=== PATIENT | male | born 1935 | race Caucasian/White ===

== ENCOUNTER 2020-09-14 09:15 | Inpatient (IN) | payer MEDICARE ==
[2020-09-14 09:59] LABS: #Basophils 0.1 10x3/uL (0.0-0.2); #Eosinphils 0.2 10x3/uL (0.0-0.5); #Monocytes 1.4 10x3/uL (0.0-1.1); #Neutrophils 5.4 10x3/uL (1.5-8.4); %Basophils 0.5 % (0.0-2.0); %Eosinophils 2.4 % (0.0-6.0); %Lymphocytes 21.9 % (18.0-47.0); %Monocytes 15.6 % (0.0-10.0); %Neutrophils 59.3 % (40.0-75.0); Hemoglobin 15.1 g/dL (13.5-17.5); Mean Corpuscular HGB CONC 32.6 g/dL (32.0-36.0); Mean Corpuscular Hemoglobin 34.1 pg (27.0-33.0); Mean Corpuscular Volume 104.5 fl (81.2-95.1); Mean Platelet Volume 11.3 fl (7.4-10.4); Platelet Count 219 10x3/uL (150-450); RBC Distribution Width 15.1 % (11.5-14.5); Red Blood Cell (RBC) Count 4.43 10x6/uL (4.32-5.72); White Blood Cell (WBC) Count 9.1 10x3/uL (3.5-10.5)
[2020-09-14 10:10] LABS: ALT (SGPT) 17 U/L (8-55); AST (SGOT) 17 U/L (5-34); Alkaline Phosphatase 119 U/L (40-110); Anion Gap 15 mmol/L (10-20); BUN (Urea Nitrogen) 21 mg/dL (8.4-25.7); Bilirubin, Total 1.5 mg/dL (0.2-1.2); Calc. Creatinine Clearance 0 mL/min (70-130); Carbon Dioxide 22 mmol/L (23-31); Chloride 105 mmol/L (98-107); Globulin 2.9 g/dL (2.4-3.5); Glucose 138 mg/dL (83-110); Magnesium 1.9 mg/dL (1.6-2.6); Potassium 4.2 mmol/L (3.5-5.1); Protein, Total 6.9 g/dL (5.8-8.1); Sodium 138 mmol/L (136-145)
[2020-09-14 10:13] LABS: D-Dimer Test 0.59 mg/L FEU (0.19-0.50); INR-International Normal Ratio 2.1; PTT 33.9 sec (22.0-33.0); Prothrombin Time 22.9 sec (9.5-12.1)
[2020-09-14 10:33] LABS: CKMB 2.4 ng/mL (0-6.6)
[2020-09-14] MEDS ORDERED: Furosemide 40 MG/4 ML VIAL ONE (11:09)
[2020-09-14] MEDS ORDERED: Senokot S 8.6-50 MG TAB PO PRN (12:05)
[2020-09-14] MEDS ORDERED: Ondansetron PF 4 MG/2 ML Vial IVP PRN (12:05)
[2020-09-14] MEDS ORDERED: Acetaminophen 325 MG TAB PO PRN (12:05)
[2020-09-14 14:37] VITALS: BMI 26.5
[2020-09-14 16:01] LABS: Troponin I 0.067 ng/mL (< 0.028)
[2020-09-14] MEDS ORDERED: Communication Order-Pharmacy FS SCH (16:30)
[2020-09-14] MEDS ORDERED: Phytonadione 10 MG/ML AMP SLOW IVP SCH (16:45)
[2020-09-14] MEDS: Furosemide 40 MG/4 ML VIAL SLOW IVP SCH (17:05)
[2020-09-14] MEDS: Carvedilol 6.25 MG TAB PO SCH (20:28)
[2020-09-14] MEDS: Atorvastatin Calcium 40 MG TAB PO SCH (20:28)
[2020-09-15 01:19] LABS: SARS-CoV-2 PCR by NAA Not Detected (NotDetected)
[2020-09-15 05:12] LABS: INR-International Normal Ratio 1.4; Prothrombin Time 15.6 sec (9.5-12.1)
[2020-09-15 05:26] LABS: ALT (SGPT) 13 U/L (8-55); AST (SGOT) 20 U/L (5-34); Albumin 3.7 g/dL (3.4-4.8); Alkaline Phosphatase 103 U/L (40-110); Anion Gap 16 mmol/L (10-20); BUN (Urea Nitrogen) 20 mg/dL (8.4-25.7); Bilirubin, Total 1.4 mg/dL (0.2-1.2); Calc. Creatinine Clearance 65 mL/min (70-130); Calcium 9.2 mg/dL (7.8-10.44); Carbon Dioxide 22 mmol/L (23-31); Cardiac Risk 2.7 (Less than 4.5); Chloride 103 mmol/L (98-107); Cholesterol 77 mg/dl (< 200 Desired); Glucose 105 mg/dL (83-110); HDL Cholesterol 29 mg/dL (>60 Neg Risk); LDL Cholesterol, Calculated 32 mg/dL; Magnesium 1.8 mg/dL (1.6-2.6); Potassium 3.6 mmol/L (3.5-5.1); Protein, Total 6.7 g/dL (5.8-8.1); Sodium 137 mmol/L (136-145); Triglycerides 81 mg/dL (Less than 150)
[2020-09-15] MEDS ORDERED: Loratadine 10 MG TAB PO SCH (06:30)
[2020-09-15] MEDS: Levothyroxine Sodium 50 MCG TAB PO SCH (06:30)
[2020-09-15] MEDS ORDERED: Clopidogrel Bisulfate 75 MG TAB PO SCH (06:30)
[2020-09-15] MEDS ORDERED: DULoxetine 30 MG CAP PO SCH (06:30)
[2020-09-15] MEDS: Carvedilol 6.25 MG TAB PO SCH ×2 (06:31→20:48)
[2020-09-15 06:39] LABS: Anisocytosis SLIGHT = 6-15 cells (100X) (0-5/hpf); Band 4 % (5-11); Hemoglobin 14.4 g/dL (13.5-17.5); Large Platelets SLIGHT; Lymphocytes 24 % (21-51); MDiff Complete? YES; Macrocytosis MODERATE=16-30 cells (100X) (0-5/hpf); Mean Corpuscular HGB CONC 33.5 g/dL (32.0-36.0); Mean Corpuscular Hemoglobin 34.2 pg (27.0-33.0); Mean Corpuscular Volume 102.1 fl (81.2-95.1); Mean Platelet Volume 11.5 fl (7.4-10.4); Monocytes 12 % (0-10); Neutrophil 56 % (42-75); Ovalocytes SLIGHT = 2-5 cells (100X) (0-1/hpf); Platelet Count 192 10x3/uL (150-450); Platelet Morphology Comment Appears Adequate; RBC Distribution Width 14.9 % (11.5-14.5); Reactive Lymphocytes 4 % (0-10); Red Blood Cell (RBC) Count 4.21 10x6/uL (4.32-5.72); White Blood Cell (WBC) Count 8.6 10x3/uL (3.5-10.5)
[2020-09-15] MEDS: Clopidogrel Bisulfate 75 MG TAB PO SCH (07:02)
[2020-09-15] MEDS: Furosemide 40 MG/4 ML VIAL SLOW IVP SCH ×2 (07:14→16:15)
[2020-09-15] MEDS: Loratadine 10 MG TAB PO SCH (08:47)
[2020-09-15] MEDS: DULoxetine 30 MG CAP PO SCH (08:47)
[2020-09-15] MEDS: Spironolactone 25 MG TAB PO SCH (08:48)
[2020-09-15] MEDS ORDERED: Nitroglycerin 50 MG/250 ML BOT 250 ML ONE (09:17)
[2020-09-15] MEDS ORDERED: Heparin 10,000 UNITS/ 10 ML VIAL ONE (09:17)
[2020-09-15] MEDS ORDERED: Lidocaine 1% PF 5 ML VIAL ONE (09:18)
[2020-09-15] MEDS ORDERED: Verapamil 5 MG/2 ML VIAL ONE (09:18)
[2020-09-15] MEDS ORDERED: Adenosine 6 MG/2 ML VIAL ONE (09:18)
[2020-09-15] MEDS ORDERED: Bivalirudin 250 MG VIAL ONE (09:18)
[2020-09-15] MEDS ORDERED: Fentanyl 100 MCG/2 ML VIAL ONE (09:44)
[2020-09-15] MEDS ORDERED: Midazolam HCl 2 mg/2 ml Vial ONE (09:45)
[2020-09-15] MEDS ORDERED: Nitroglycerin 0.4 MG TAB (25 Tab Bottle) SL PRN (14:23)
[2020-09-15] MEDS ORDERED: Sodium Chloride 0.9% 200 ML IV PRN (14:23)
[2020-09-15] MEDS ORDERED: Acetaminophen/Codeine 30-300mg Tablet PO PRN ×2 (14:23)
[2020-09-15] MEDS ORDERED: Warfarin Sodium 10 MG TAB PO SCH (17:00)
[2020-09-15] MEDS: Sacubitril 49 MG/Valsartan 51 MG TABLET PO SCH (17:49)
[2020-09-15] MEDS: Atorvastatin Calcium 40 MG TAB PO SCH (20:47)
[2020-09-16] MEDS: Levothyroxine Sodium 50 MCG TAB PO SCH (06:29)
[2020-09-16] MEDS: Furosemide 40 MG/4 ML VIAL SLOW IVP SCH (06:29)
[2020-09-16 06:48] LABS: INR-International Normal Ratio 1.2; Prothrombin Time 13.4 sec (9.5-12.1)
[2020-09-16] MEDS: Loratadine 10 MG TAB PO SCH (08:05)
[2020-09-16] MEDS: Sacubitril 49 MG/Valsartan 51 MG TABLET PO SCH (08:05)
[2020-09-16] MEDS: DULoxetine 30 MG CAP PO SCH (08:05)
[2020-09-16] MEDS: Clopidogrel Bisulfate 75 MG TAB PO SCH (08:06)
[2020-09-16] MEDS: Carvedilol 6.25 MG TAB PO SCH (08:06)
[2020-09-16] MEDS: Spironolactone 25 MG TAB PO SCH (08:06)
[2020-09-16 08:08] VITALS: TEMP 96.9
[2020-09-16 11:53] VITALS: BP 116/72
[2020-09-16] MEDS ORDERED: Warfarin Sodium 5 MG TAB PO SCH (17:00)
[2020-09-16] MEDS ORDERED: Warfarin Sodium 2.5 MG TAB PO SCH (17:00)
[2020-09-17] MEDS ORDERED: Furosemide 40 MG TAB PO SCH (07:30)
[2020-09-21] MEDS ORDERED: Warfarin Sodium 5 MG TAB PO SCH (17:00)
== END 2020-09-16 14:09 | disposition home or self-care (01) | DRG 287 ==
LOC: SUATTDRO 09:15 → CSHERS 09:15 → CSHTELE 13:47
PROVIDERS: ADMIT Internal Medicine; ATTEND Family Medicine
PROC: 4A023N7 Measurement of Cardiac Sampling and Pressure, Left Heart, Percutaneous Approach (ICD-10-PCS; principal; 2020-09-15)
PROC: B2111ZZ Fluoroscopy of Multiple Coronary Arteries using Low Osmolar Contrast (ICD-10-PCS; 2020-09-15)
PROC: B2161ZZ Fluoroscopy of Right and Left Heart using Low Osmolar Contrast (ICD-10-PCS; 2020-09-15)
DX: I11.0 Hypertensive heart disease with heart failure (principal); I48.11 Longstanding persistent atrial fibrillation; I82.531 Chronic embolism and thrombosis of right popliteal vein; I50.23 Acute on chronic systolic (congestive) heart failure; Z20.822 Contact with and (suspected) exposure to COVID-19; Z66 Do not resuscitate; E78.5 Hyperlipidemia, unspecified; I25.10 Atherosclerotic heart disease of native coronary artery without angina pectoris; Z95.5 Presence of coronary angioplasty implant and graft; Z87.891 Personal history of nicotine dependence; G47.30 Sleep apnea, unspecified; Z85.828 Personal history of other malignant neoplasm of skin; I35.0 Nonrheumatic aortic (valve) stenosis; I25.5 Ischemic cardiomyopathy; Z79.899 Other long term (current) drug therapy; Z79.01 Long term (current) use of anticoagulants
CPT/HCPCS: 36415; 71275; 80053; 80061; 82553; 83735; 83880; 84484; 85007; 85025; 85027; 85379; 85610; 85730; 87635; 93005; 93458; 96374; 99152; J0153; J0583; J1644; J1940; J2250; J3010; J3430; U0003; U0005

== ENCOUNTER 2020-09-29 18:06 | Emergency (ER) | payer MEDICARE ==
[2020-09-29 19:14] LABS: CKMB 2.8 ng/mL (0-6.6)
[2020-09-29 20:03] LABS: ALT (SGPT) 13 U/L (8-55); AST (SGOT) 18 U/L (5-34); Alkaline Phosphatase 92 U/L (40-110); Anion Gap 17 mmol/L (10-20); BUN (Urea Nitrogen) 29 mg/dL (8.4-25.7); Bilirubin, Total 1.2 mg/dL (0.2-1.2); Calc. Creatinine Clearance 0 mL/min (70-130); Calcium 9.6 mg/dL (7.8-10.44); Carbon Dioxide 22 mmol/L (23-31); Chloride 102 mmol/L (98-107); Globulin 3.1 g/dL (2.4-3.5); Glucose 111 mg/dL (83-110); Potassium 4.2 mmol/L (3.5-5.1); Protein, Total 7.1 g/dL (5.8-8.1); Sodium 137 mmol/L (136-145)
[2020-09-29 20:04] LABS: #Basophils 0.1 10x3/uL (0.0-0.2); #Eosinphils 0.2 10x3/uL (0.0-0.5); #Monocytes 1.1 10x3/uL (0.0-1.1); #Neutrophils 5.1 10x3/uL (1.5-8.4); %Basophils 0.9 % (0.0-2.0); %Eosinophils 2.1 % (0.0-6.0); %Lymphocytes 17.7 % (18.0-47.0); %Neutrophils 64.8 % (40.0-75.0); Hemoglobin 15.3 g/dL (13.5-17.5); Mean Corpuscular HGB CONC 33.3 g/dL (32.0-36.0); Mean Corpuscular Hemoglobin 34.1 pg (27.0-33.0); Mean Corpuscular Volume 102.2 fl (81.2-95.1); Mean Platelet Volume 11.3 fl (7.4-10.4); Platelet Count 262 10x3/uL (150-450); RBC Distribution Width 14.6 % (11.5-14.5); Red Blood Cell (RBC) Count 4.49 10x6/uL (4.32-5.72); Troponin I 0.069 ng/mL (< 0.028); White Blood Cell (WBC) Count 7.8 10x3/uL (3.5-10.5)
[2020-09-29 20:11] LABS: INR-International Normal Ratio 2.3; Prothrombin Time 24.8 sec (9.5-12.1)
== END 2020-09-29 19:34 | disposition home or self-care (01) ==
LOC: CSHERS 18:06
DX: R20.2 Paresthesia of skin (principal)
CPT/HCPCS: 70450; 71045; 80053; 82553; 84484; 85025; 85610; 93005; 93010

== ENCOUNTER 2021-05-26 12:58 | Emergency (ER) | payer MEDICARE ==
[2021-05-26] MEDS ORDERED: Lidocaine 1% w/Epinephrine 1:100K 20 ML VIAL ONE (13:38)
[2021-05-26 13:48] LABS: #Basophils 0.1 10x3/uL (0.0-0.2); #Eosinphils 0.4 10x3/uL (0.0-0.5); #Monocytes 1.1 10x3/uL (0.0-1.1); #Neutrophils 6.4 10x3/uL (1.5-8.4); %Basophils 0.8 % (0.0-2.0); %Eosinophils 3.7 % (0.0-6.0); %Lymphocytes 19.8 % (18.0-47.0); %Monocytes 11.2 % (0.0-10.0); Mean Corpuscular HGB CONC 32.1 g/dL (32.0-36.0); Mean Corpuscular Hemoglobin 35.2 pg (27.0-33.0); Mean Corpuscular Volume 109.6 fl (81.2-95.1); Mean Platelet Volume 11.2 fl (7.4-10.4); Platelet Count 266 10x3/uL (150-450); RBC Distribution Width 13.9 % (11.5-14.5); Red Blood Cell (RBC) Count 4.26 10x6/uL (4.32-5.72); White Blood Cell (WBC) Count 9.9 10x3/uL (3.5-10.5)
[2021-05-26 13:52] LABS: ALT (SGPT) 12 U/L (8-55); AST (SGOT) 22 U/L (5-34); Albumin 4.5 g/dL (3.4-4.8); Alkaline Phosphatase 96 U/L (40-110); Anion Gap 15 mmol/L (10-20); BUN (Urea Nitrogen) 35 mg/dL (8.4-25.7); Calc. Creatinine Clearance 0 mL/min (70-130); Calcium 9.7 mg/dL (7.8-10.44); Carbon Dioxide 25 mmol/L (23-31); Chloride 103 mmol/L (98-107); Glucose 142 mg/dL (83-110); Potassium 4.6 mmol/L (3.5-5.1); Protein, Total 8.5 g/dL (5.8-8.1); Sodium 138 mmol/L (136-145)
[2021-05-26] MEDS ORDERED: Tranexamic Acid 1,000 MG/10 ML VIAL ONE ×2 (14:56→15:42)
[2021-05-26] MEDS ORDERED: Lidocaine 4% Topical Sol 50 ML BOT ONE (15:06)
[2021-05-26] MEDS ORDERED: Lidocaine/Transparent Dressing 1 EACH KIT ONE (15:08)
[2021-05-26] MEDS ORDERED: Bacitracin 1 PK ONE (16:01)
[2021-05-26] MEDS ORDERED: Boostrix 0.5 ML (Tdap) VIAL ONE (17:08)
== END 2021-05-26 17:30 | disposition home or self-care (01) ==
LOC: CSHERS 12:58
DX: S01.311A Laceration without foreign body of right ear, initial encounter (principal); I10 Essential (primary) hypertension; W06.XXXA Fall from bed, initial encounter
CPT/HCPCS: 12013; 70450; 71260; 72125; 74177; 80053; 85025; 90471; 90715; 93005

== ENCOUNTER 2022-02-15 14:18 | Outpatient (CLI) | payer MEDICARE | END 2022-02-15 14:19 | disposition home or self-care (01) | LOC: CSHRAD 14:18 | PROVIDERS: ATTEND Family Medicine | DX: R07.81 Pleurodynia (principal); W19.XXXA Unspecified fall, initial encounter ==